=== PATIENT | female | born 1955 ===

== ENCOUNTER 2016-10-25 10:24 | Day surgery (SDC) | payer MEDICARE, OTHER ==
[2016-10-22 09:52] VITALS: BMI 37.4
[2016-10-25] MEDS ORDERED: Lactated Ringer's 1,000 ML IV ONE (10:45)
[2016-10-25] MEDS ORDERED: Metoprolol Succinate 50 mg XL Tab PO ONE ×2 (11:16→11:30)
[2016-10-25] MEDS ORDERED: Propofol 10 mg/ml Inj (20 ML) ONE (14:06)
[2016-10-25] MEDS ORDERED: Midazolam 2 MG/2 ML VIAL ONE ×2 (14:06→14:28)
[2016-10-25] MEDS ORDERED: cefTRIAXone (Rocephin) 1 gm Inj IVPB ONE (14:26)
[2016-10-25 14:51] VITALS: RESP 20
[2016-10-25 16:14] VITALS: BP 128/84; PULSE 74; TEMP 98.3; O2SAT 96
--- NOTE | 2016-11-10 17:33 | OP ---
PROCEDURE DATE: 10/25/2016 PREOPERATIVE DIAGNOSIS: Left renal calculus. POSTOPERATIVE DIAGNOSIS: Left renal calculus. PROCEDURE PERFORMED: Cystoscopy with an insertion of a double-J stent. DESCRIPTION OF PROCEDURE: Under IV sedation, the patient was placed on the operating room table in dorsal lithotomy position. The area of the groin was draped and prepped in a sterile manner. Using a #21-cystoscope, I entered into bladder atraumatically. I identified the left ureteral orifice, and inserting a sensor wire into the left ureter and up to the level of the renal pelvis, I could identify the stone on x-ray. I then, over that existing sensor wire, inserted a 6-[place] multi-length double-J stent. Once the distal portion and the proximal portion of the stents were identified and seen in good position under fluoroscopy, then all the instrumentation was removed and the patient was taken from the operating room in good condition. Casandra Wagoner MD
--- NOTE | 2016-11-11 09:00 | DS ---
This female patient was admitted to the hospital today for same-day surgery. She has an existing large left renal calculus. The purpose of the admission was to insert a J-stent in preparation for eventual lithotripsy of the stone. Patient underwent an uneventful procedure. The J-stent was in good position at the end of the procedure. Postoperatively, she is stable. She will be given some prescriptions for home use and at this time the, the patient is discharged home. She will follow up with my office for the timing of the following procedure, which is the lithotripsy, which will be scheduled in the near future. Casandra Wagoner MD
== END 2016-10-25 16:53 | disposition home or self-care (01) ==
LOC: H.OPSURG 10:24
PROVIDERS: ATTEND Urology
DX: N20.0 Calculus of kidney (principal); E11.9 Type 2 diabetes mellitus without complications; E78.5 Hyperlipidemia, unspecified; I10 Essential (primary) hypertension
CPT/HCPCS: 52332; 82948; C2617; J0696; J2001; J2250; J2270; J2704; J3010; J7120